=== PATIENT | male | born 1970 | race Hispanic/Latino ===

== ENCOUNTER 2016-10-18 16:03 | Observation (INO) | payer MEDICARE ==
[2016-10-18 16:19] VITALS: RESP 18; TEMP 98; BMI 23.2
[2016-10-18] MEDS ORDERED: Sodium Chloride 0.9% 1,000 ML IV STA ×2 (16:46→18:40)
--- NOTE | 2016-10-18 16:56 | ED PDOC ---
Arrival/HPI - General Chief Complaint: Dizziness/Lightheaded Time Seen by Provider: 10/18/16 16:26 Historian: Patient - History of Present Illness Narrative History of Present Illness (Text): 10/18/16 16:53 Patient w/ PMH of HIV on antiviral therapy and peripheral neuropathy, reports 2 day h/o intermittent dizziness described as lightheadedness with no vertigo associated with posterior neck pain, worse with movement, nausea and multiple episodes of vomiting. Patient adds that he has been having a cough for the past 2 weeks, states that 2 weeks ago he finished a Z-Yefri. Reports (+) worsening of symptoms with movement of head. Otherwise: (-) trauma, (-) headache, (-) tinnitus, (-) hearing loss, (-) chest pain, (-) dyspnea, (-) fever, (-) abdominal pain, (-) diarrhea, (-) urinary symptoms, (-) syncope, (-) GI bleeding , (-0 recent travel. PMD Portillo Fisher Past Medical History - Provider Review Nursing Documentation Reviewed: Yes - Tetanus Immunization Tetanus Immunization: Unknown - Cardiac Hx Cardiac Disorders: No Hx Pacemaker: No - Neurological Hx Paralysis: No Other/Comment: peripheral neuropathy - Hematological/Oncological Hx AIDS: Yes Hx Anemia: Yes (hx: blood transfusions) - Musculoskeletal/Rheumatological Hx Arthritis: Yes Hx Falls: No - Gastrointestinal Hx Gastrointestinal Disorders: (esophageal candidiasis) - Psychiatric Hx Depression: Yes Hx Emotional Abuse: No Hx Physical Abuse: No Hx Substance Use: No - Surgical History Hx Appendectomy: Yes - Anesthesia Hx Anesthesia: Yes Hx Anesthesia Reactions: No Hx Malignant Hyperthermia: No - Suicidal Assessment Feels Threatened In Home Enviroment: No Family/Social History - Physician Review Nursing Documentation Reviewed: Yes Family/Social History: No Known Family HX Smoking Status: Heavy Smoker > 10 Cigarettes Daily Hx Alcohol Use: No Hx Substance Use: No Hx Substance Use Treatment: No Allergies/Home Meds Allergies/Adverse Reactions: Allergies clarithromycin [From Biaxin] Allergy (Verified 10/18/16 16:15) VOMITING Home Medications: Home Meds Medication Instructions Recorded Confirmed Elviteg/Eve/Emtric/Tenofo Ala 1 each PO DAILY 10/18/16 10/18/16 [Genvoya Tablet] Fluconazole [Diflucan] 50 mg PO BID 10/18/16 10/18/16 Gabapentin [Neurontin] 800 mg PO TID 10/18/16 10/18/16 Oxycodone HCl [Oxaydo] 5 mg PO Q3 10/18/16 10/18/16 Oxycodone HCl [Oxycontin] 80 mg PO TID 10/18/16 10/18/16 Review of Systems - Review of Systems Constitutional: Normal, Fatigue (2 days). absent: Weight Change, Fevers ENT: Normal. absent: Hearing Changes, Tinnitus Respiratory: Normal, Cough (2 weeks). absent: SOB, Sputum Cardiovascular: Normal. absent: Chest Pain, Palpitations Gastrointestinal: Normal. absent: Abdominal Pain, Stool Changes Musculoskeletal: Normal, Neck Pain. absent: Arthralgias, Back Pain Skin: Normal. absent: Rash, Pruritis, Skin Lesions Neurological: Normal, Dizziness (2 days). absent: Headache, Focal Weakness Physical Exam - Physical Exam Narrative Physical Exam (Text): 10/18/16 17:14 GENERAL APPEARANCE: Patient is awake, alert, oriented x 3, in no acute distress. SKIN: Warm, dry; (-) cyanosis. HEAD: (-) scalp swelling or tenderness. EYES: (-) conjunctival pallor. ENMT: TMs normal. Mucous membranes dry. NECK: (-) tenderness, (-) stiffness, (-) meningismus, (-) lymphadenopathy. Carotids: (-) bruit. CHEST AND RESPIRATORY: (-) rales, (-) rhonchi, (-) wheezes; breath sounds equal bilaterally. HEART AND CARDIOVASCULAR: (-) irregularity; (-) murmur, (-) gallop. ABDOMEN AND GI: Soft; (-) distention, (-) tenderness, (-) rebound, (-) guarding , (-) palpable masses, (-) flank tenderness. EXTREMITIES: (-) deformity; (-) edema. Distal pulses: present. NEURO AND PSYCH: Mental status as above. mechanical handyman: (-) nystagmus; Pupils equal & reactive, EOMI, (-) facial asymmetry; (-) dysarthria; tongue and uvula midline. Strength and DTRs symmetric. Gait: not tested. Vital Signs Temp Pulse Resp BP Pulse Ox 10/18/16 17:08 68 18 115/75 96 10/18/16 16:15 98 F 70 18 117/79 96 Medical Decision Making ED Course and Treatment: 10/18/16 17:15 46 yo M with h/o HIV, presents with 2 day history of dizziness associated with nausea, vomiting and neck pain. Plan: -- Labs -- IV fluids -- Urinalysis -- EKG -- CXR -- Meclizine / Zofran -- Reassess and disposition EKG: NSR at 64 bpm, (-) acute ST changes, as read by PA. - Medication Orders Current Medication Orders: Discontinued Medications Sodium Chloride (Sodium Chloride 0.9%) 1,000 mls @ 1,000 mls/hr IV .Q1H STA Stop: 10/18/16 17:45 Last Admin: 10/18/16 17:12 Dose: 1,000 MLS/HR eMAR Start Stop Document 10/18/16 17:12 RR (Rec: 10/18/16 17:13 RR [id number]) Intravenous Solution Start Date 10/18/16 Start Time 17:13 End Date 10/18/16 End time 18:13 Total Infusion Time 60 Sodium Chloride (Sodium Chloride 0.9%) 1,000 mls @ 1,000 mls/hr IV .Q1H STA Stop: 10/18/16 19:39 Last Admin: 10/18/16 18:43 Dose: 1,000 MLS/HR eMAR Start Stop Document 10/18/16 18:43 RR (Rec: 10/18/16 18:43 RR [id number]) Intravenous Solution Start Date 10/18/16 Start Time 18:43 End Date 10/18/16 End time 19:43 Total Infusion Time 60 Meclizine HCl (Antivert) 25 mg PO STAT STA Stop: 10/18/16 16:47 Last Admin: 10/18/16 17:12 Dose: 25 MG Ondansetron HCl (Zofran Inj) 8 mg IVP STAT STA Stop: 10/18/16 16:47 Last Admin: 10/18/16 17:13 Dose: 8 MG IVP Administration Document 10/18/16 17:13 RR (Rec: 10/18/16 17:13 RR [id number]) Charges for Administration # of IVP Administrations 1 Potassium Chloride (Potassium Chloride Oral Soln) 40 meq PO STAT STA Stop: 10/18/16 17:51 Last Admin: 10/18/16 18:02 Dose: 40 MEQ ED OBSERVATION Date of observation admission: 10/18/16 Time of observation admission: 16:45 - Observation admission statement Patient is being placed in observation because:: For IV hydration, monitor patient's symptoms. - Goals of Observation Goals of observation are:: To see patient's response to treatment. - Progress Note Progress Note: 10/18/16 17:30 EKG: NSR at 64 bpm, (-) acute ST changes, as read by CALEB. CXR : NAD, as read by CALEB 10/18/16 18:43 On reevaluation, patient reports improvement of his symptoms, denies any dizziness at this time or nausea. Denies any abdominal pain, chest pain or shortness of breath. Labs reviewed and discussed with the patient in great detail. White count is within normal limits, patient remains afebrile, not tachycardic and has a normal pulse ox. Chest x-ray is within normal limits. Will continue to give IV hydration, second normal saline bolus ordered. 10/18/16 20:00 On second reevaluation patient reports that he feels much improved. He denies any dizziness, nausea, chest pain or shortness of breath at this time. Based on history, exam and diagnostic results plan will be for outpatient follow-up with PMD. Prescription provided. Patient states he fully agrees with and understands discharge instructions. States that he agrees with the plan and disposition. Verbalized and repeated discharge instructions and plan. I have given the patient opportunity to ask any additional questions. Follow up with primary care physician in 1-2 days without fail. Advised to take medication as prescribed. Return to the emergency room at any time for any new or worsening symptoms. - PA / MONITOR WORKER / Resident Statement /DO has reviewed & agrees with the documentation as recorded. Disposition/Present on Arrival - Present on Arrival Any Indicators Present on Arrival: No History of DVT/PE: No History of Uncontrolled Diabetes: No Urinary Catheter: No History of Decub. Ulcer: No History Surgical Site Infection Following: None - Disposition Have Diagnosis and Disposition been Completed?: Yes Diagnosis: Dehydration, Vomiting, Dizziness Disposition: HOME/ ROUTINE Disposition Time: 16:45 (Patient placed in ED obs. Then was discharged after observation and treamtnet in the ER. ) Patient Plan: Discharge Patient Problems: Current Active Problems Problem Status Diagnosed Dehydration Acute Dizziness Acute Vomiting Acute Condition: STABLE
[2016-10-18 17:38] LABS: ADD MANUAL DIFF? NO
[2016-10-18 17:48] LABS: ALB/GLOB RATIO 1.1 (1.1-1.8); ALKALINE PHOSPHATASE 132 U/L (38-133); ALT/SGPT 27 U/L (7-56); AST/SGOT 30 U/L (15-59); BILIRUBIN,TOTAL 0.7 mg/dL (0.2-1.3); BLOOD UREA NITROGEN 5 mg/dL (7-21); CALCIUM 8.7 mg/dL (8.4-10.5); CARBON DIOXIDE 30 mmol/L (21-33); CHLORIDE 93 mmol/L (98-107); GFR AFRICAN-AMERICAN > 60; GLUCOSE,RANDOM 106 mg/dL (70-110); POTASSIUM 3.3 mmol/L (3.6-5.0); SODIUM 130 mmol/L (132-148); TOTAL PROTEIN 7.5 g/dL (5.8-8.3)
[2016-10-18] MEDS ORDERED: Potassium Chloride 20 mEq/15 ml LIQ UD PO STA (17:50)
[2016-10-18 17:54] LABS: BASO # 0.01 K/mm3 (0.0-2.0); BASO % 0.2 % (0.0-3.0); EOS # 0.1 (0.0-0.7); EOS % 1.6 % (1.5-5.0); GRAN # 3.24 (1.4-6.5); GRAN % 58.3 % (50.0-68.0); HEMATOCRIT 38.1 % (42.0-52.0); LYMPH # 1.9 (1.2-3.4); LYMPH % 34.5 % (22.0-35.0); MEAN CELL VOLUME 96.2 fL (80.0-105.0); MEAN CORPUSCULAR HEMOGLOBIN 34.6 pg (25.0-35.0); MEAN PLATELET VOLUME 9.2 fl (7.0-11.0); MONO # 0.3 (0.1-0.6); MONO % 5.4 % (1.0-6.0); PLATELET COUNT 182 10^3/uL (120.0-450.0); RED CELL DISTRIBUTION WIDTH 12.4 % (11.5-14.5); WHITE BLOOD COUNT 5.6 10^3/ul (4.5-11.0)
[2016-10-18 20:29] VITALS: BP 124/86; PULSE 72; O2SAT 97
--- NOTE | 2016-10-19 07:58 | RAD ---
HISTORY: cough COMPARISON: 07/16/2014 TECHNIQUE: Chest PA and lateral FINDINGS: LUNGS: A nodular 1.3 cm opacity projects over the right inferolateral lung zone and also projects over anterior right 7th rib. Cephalad to that, there is pleural thickening and possible interval healed rib fractures here. This appearance is not noted on the 2015 image. An unusually prominent asymmetrical nipple shadow is another consideration. Again not appreciated on prior study. To exclude any underlying pulmonary nodules, consider noncontrast CT chest imaging PLEURA: As above. No pneumothorax seen no effusion noted CARDIOVASCULAR: Normal. OSSEOUS STRUCTURES: As above VISUALIZED UPPER ABDOMEN: Normal. OTHER FINDINGS: None. IMPRESSION: Indeterminate nodular opacity right inferolateral lung zone. This is also superimposed on ribs and may be related to that. An unusually prominent shadow although not excluded is believe less likely. To exclude an underlying interval right pulmonary nodule here, consider CT chest imaging
--- NOTE | 2016-10-19 15:37 | CARD ---
APPROVED REPORT EKG Measurement Heart [id number] <Conclusion> Normal sinus rhythm RVCD Subtle ST flattening V 4 - 6
== END 2016-10-18 19:51 | disposition home or self-care (01) ==
LOC: ED 16:03 → EROBSV 16:45
PROVIDERS: ADMIT Emergency Medicine; ATTEND Emergency Medicine
DX: E86.0 Dehydration (principal); R11.10 Vomiting, unspecified; R42 Dizziness and giddiness
CPT/HCPCS: 71020; 80053; 85025; 93005; 96361; 96374; 99285; G0378; J2405; J7040

== ENCOUNTER 2018-05-15 06:36 | Emergency (ER) | payer MEDICARE ==
[2018-05-15 06:44] VITALS: BMI 17.4
[2018-05-15] MEDS ORDERED: oxyCODONE 80 mg ER Tab (oxyCONTIN) PO STA (07:15)
--- NOTE | 2018-05-15 07:24 | ED PDOC ---
Arrival/HPI - General Chief Complaint: Trauma Time Seen by Provider: 05/15/18 07:08 Historian: Patient - History of Present Illness Narrative History of Present Illness (Text): 05/15/18 07:15 Patient is a 48 year old male whose past medical history includes HIV, anemia, and neuropathy, who presents to the Emergency department complaining of loss of consciousness s/p mechanical fall. Patient reports that earlier today while [place] his dog, he tripped and fell hitting his head, right elbow, and knees. He subsequently went home and has since had two episodes of losing consciousness, and feels nauseas. He admits to nose and chin pain from the fall, and denies any open wound secondary to the fall. Of note patient states that he takes Gabapentin 800mg twice daily for neuropathy and can't miss his dose. He also takes Oxycontin. Patient denies fevers, chills, cough, shortness of breath, chest pain, dyspnea on exertion, abdominal pain, vomiting, diarrhea, back pain, neck pain, headache, dizziness, or any other complaint. PMD: Dr.Jack Nath Neurologist: Infectious Disease: Time/Duration: 1-3 hours Symptom Onset: Sudden Symptom Course: Intermittent Context: Home Past Medical History - Provider Review Nursing Documentation Reviewed: Yes - Infectious Disease Hx of Infectious Diseases: None - Tetanus Immunization Tetanus Immunization: Unknown - Cardiac Hx Cardiac Disorders: No Hx Pacemaker: No - Neurological Hx Paralysis: No Other/Comment: peripheral neuropathy - Hematological/Oncological Hx AIDS: Yes Hx Anemia: Yes (hx: blood transfusions) - Musculoskeletal/Rheumatological Hx Arthritis: Yes Hx Falls: No - Gastrointestinal Hx Gastrointestinal Disorders: (esophageal candidiasis) - Psychiatric Hx Depression: Yes Hx Emotional Abuse: No Hx Physical Abuse: No Hx Substance Use: No - Surgical History Hx Appendectomy: Yes - Anesthesia Hx Anesthesia: Yes Hx Anesthesia Reactions: No Hx Malignant Hyperthermia: No - Suicidal Assessment Feels Threatened In Home Enviroment: No Family/Social History - Physician Review Nursing Documentation Reviewed: Yes Family/Social History: No Known Family HX Smoking Status: Heavy Smoker > 10 Cigarettes Daily Hx Alcohol Use: No Hx Substance Use: No Hx Substance Use Treatment: No Allergies/Home Meds Allergies/Adverse Reactions: Allergies clarithromycin [From Biaxin] Allergy (Verified 05/15/18 06:44) VOMITING sulfamethoxazole [From Bactrim] Allergy (Verified 05/15/18 06:44) VOMITING trimethoprim [From Bactrim] Allergy (Verified 05/15/18 06:44) VOMITING Home Medications: Home Meds Medication Instructions Recorded Confirmed Elviteg/Cob/Emtri/Tenof Alafen 1 each PO DAILY 10/18/16 10/18/16 [Genvoya Tablet] Fluconazole [Diflucan] 50 mg PO BID 10/18/16 10/18/16 Gabapentin [Neurontin] 800 mg PO TID 10/18/16 10/18/16 Oxycodone HCl [Oxaydo] 5 mg PO Q3 10/18/16 10/18/16 Oxycodone HCl [Oxycontin] 80 mg PO TID 10/18/16 10/18/16 Review of Systems - Physician Review All systems were reviewed & negative as marked: Yes - Review of Systems Constitutional: absent: Fevers, Night Sweats Respiratory: absent: SOB, Cough Cardiovascular: absent: Chest Pain Gastrointestinal: Nausea. absent: Abdominal Pain, Diarrhea, Vomiting Musculoskeletal: absent: Back Pain, Neck Pain Neurological: Other (loss of consciousness). absent: Headache, Dizziness Physical Exam - Physical Exam Narrative Physical Exam (Text): 05/15/18 07:16 Constitutional: No acute distress. Head: Normocephalic. Atraumatic. Eyes: PERRL. ENT: Moist mucous membranes. Neck: Supple. No midline Tenderness Cardiovascular: Regular rate. Chest: No tenderness. Respiratory: Clear to auscultation bilaterally. GI: Soft. Nontender. Nondistended. Back: No CVA tenderness. No midline tenderness. Musculoskeletal: No tenderness or swelling of extremities. Skin: No rash. Neurologic: Alert, no focal deficit. Vital Signs Reviewed: Yes Vital Signs Temp Pulse Resp BP Pulse Ox 05/15/18 06:43 98.1 F 74 17 120/73 98 Temperature: Afebrile Blood Pressure: Normal Pulse: Regular Respiratory Rate: Normal Appearance: Positive for: Well-Appearing Mental Status: Positive for: Alert and Oriented X 3 Medical Decision Making ED Course and Treatment: 05/15/18 07:16 Impression: 48 year old male who is complaining of nausea, facial pain, and two episodes of losing consciousness s/p mechanical fall Plan: -- Maxillofacial CT without contrast -- Head CT without contrast -- Neurontin -- Oxycodone -- Reassess and disposition Prior Visits: Notes and results from previous visits were reviewed. Progress Notes: Patient in no distress. Imaging unremarkable. Discharged home, f/u PMD, return to ED for worsening pain, vomiting, lethargy, confusion, or any other problem. - RAD Interpretation Narrative RAD Interpretations (Text): 05/15/18 08:[address] without contrast: Dictator : Henrique Lebron MD FINDINGS: NASAL BONES: Nasal bones intact. There is deviation of the mild leftward deviation of the nasal septum. Small left-sided spur seen arising from the nasal septum as well. ORBITS: Unremarkable. PARANASAL SINUSES/ MASTOIDS: Clear. There is mild mucosal thickening in the left maxillary antrum with possible small fluid level. There is also mucosal thickening seen within a few ethmoid air cells extending superiorly into the inferior margin of the frontal sinus on the left side. MAXILLA: Maxilla including the anterior nasal spine intact. Patient is edentulous. MANDIBLE/ TEMPOROMANDIBULAR JOINTS: Unremarkable. SKULL BASE: Unremarkable. TEMPORAL BONES: Middle ears and mastoid grossly unremarkable. OTHER FINDINGS: Orbits and contents unremarkable. Globes intact and lenses appropriately located. There are no retrobulbar hemorrhages or collections. Optic nerves and extraocular musculature unremarkable. IMPRESSION: No acute maxillofacial skeletal fractures. Mild mucoperiosteal inflammatory changes left maxillary antrum with possible small fluid level. There is also opacification of a few ethmoid air cells extending superiorly into the inferior aspect of the frontal sinus on the left side. 05/15/18 09:[address] without contrast: FINDINGS: Dictator : Henrique Lebron MD HEMORRHAGE: No acute parenchymal, subarachnoid or extra-axial hemorrhage. BRAIN: Suspect minor chronic periventricular white matter ischemic changes. No obvious parenchymal nor extra-axial mass or collection. Mild generalized volume loss. VENTRICLES: No obstructive hydrocephalus. CALVARIUM: No acute calvarial fractures. PARANASAL SINUSES: Mild mucosal thickening seen within left maxillary antrum. Minor mucosal thickening noted within a few ethmoid air cells. The Mild generalized MASTOID AIR CELLS: Unremarkable as visualized. No inflammatory changes. OTHER FINDINGS: None. IMPRESSION: No acute intracranial hemorrhage. Suspect minor chronic periventricular white matter ischemic changes. Mild generalized volume loss. 05/15/18 9:42 Right Elbow X-ray: Dictator : Alonzo Patel MD IMPRESSION: Unremarkable radiographs of the right elbow. Youth Program Director: Radiologist - Medication Orders Current Medication Orders: Gabapentin (Neurontin) 800 mg PO STAT STA; Protocol Stop: 05/15/18 07:15 - Scribe Statement The provider has reviewed the documentation as recorded by the Scribe Joe Nicholasurmila Provider Scribe Attestation: All medical record entries made by the Scribe were at my direction and personally dictated by me. I have reviewed the chart and agree that the record accurately reflects my personal performance of the history, physical exam, medical decision making, and the department course for this patient. I have also personally directed, reviewed, and agree with the discharge instructions and disposition. Disposition/Present on Arrival - Present on Arrival Any Indicators Present on Arrival: No History of DVT/PE: No History of Uncontrolled Diabetes: No Urinary Catheter: No History of Decub. Ulcer: No History Surgical Site Infection Following: None - Disposition Have Diagnosis and Disposition been Completed?: Yes Diagnosis: Fall, Elbow pain, Head injury Disposition: HOME/ ROUTINE Disposition Time: 09:35 Patient Plan: Discharge Condition: STABLE Discharge Instructions (ExitCare): Closed Head Injury (DC) Referrals: Dylan Nath MD [Family Provider] - Follow up with primary Forms: [employer] ([place]uan)
[2018-05-15] MEDS ORDERED: oxyCODONE 20 mg ER Tab (oxyCONTIN) PO ONE (07:30)
--- NOTE | 2018-05-15 08:43 | CT ---
Date of service: 05/15/2018 PROCEDURE: CT MAXILLOFACIAL BONES WITHOUT CONTRAST HISTORY: fall, struck face COMPARISON: None available. TECHNIQUE: Contiguous axial CT images of the maxillofacial bones were obtained. Coronal and sagittal reformats were generated. Radiation dose: Total exam DLP = 764.36 mGy-cm. This CT exam was performed using one or more of the following dose reduction techniques: Automated exposure control, adjustment of the mA and/or kV according to patient size, and/or use of iterative reconstruction technique. FINDINGS: NASAL BONES: Nasal bones intact. There is deviation of the mild leftward deviation of the nasal septum. Small left-sided spur seen arising from the nasal septum as well. ORBITS: Unremarkable. PARANASAL SINUSES/ MASTOIDS: Clear. There is mild mucosal thickening in the left maxillary antrum with possible small fluid level. There is also mucosal thickening seen within a few ethmoid air cells extending superiorly into the inferior margin of the frontal sinus on the left side. MAXILLA: Maxilla including the anterior nasal spine intact. Patient is edentulous. MANDIBLE/ TEMPOROMANDIBULAR JOINTS: Unremarkable. SKULL BASE: Unremarkable. TEMPORAL BONES: Middle ears and mastoid grossly unremarkable. OTHER FINDINGS: Orbits and contents unremarkable. Globes intact and lenses appropriately located. There are no retrobulbar hemorrhages or collections. Optic nerves and extraocular musculature unremarkable. IMPRESSION: No acute maxillofacial skeletal fractures. Mild mucoperiosteal inflammatory changes left maxillary antrum with possible small fluid level. There is also opacification of a few ethmoid air cells extending superiorly into the inferior aspect of the frontal sinus on the left side.
--- NOTE | 2018-05-15 08:55 | CT ---
Date of service: 05/15/2018 PROCEDURE: CT HEAD WITHOUT CONTRAST. HISTORY: fall, LOC COMPARISON: Comparison made with concurrent CT scan maxillofacial skeleton TECHNIQUE: Axial computed tomography images were obtained through the head/brain without intravenous contrast. Radiation dose: Total exam DLP = 1124.57 mGy-cm. This CT exam was performed using one or more of the following dose reduction techniques: Automated exposure control, adjustment of the mA and/or kV according to patient size, and/or use of iterative reconstruction technique. FINDINGS: HEMORRHAGE: No acute parenchymal, subarachnoid or extra-axial hemorrhage. BRAIN: Suspect minor chronic periventricular white matter ischemic changes. No obvious parenchymal nor extra-axial mass or collection. Mild generalized volume loss. VENTRICLES: No obstructive hydrocephalus. CALVARIUM: No acute calvarial fractures. PARANASAL SINUSES: Mild mucosal thickening seen within left maxillary antrum. Minor mucosal thickening noted within a few ethmoid air cells. The Mild generalized MASTOID AIR CELLS: Unremarkable as visualized. No inflammatory changes. OTHER FINDINGS: None. IMPRESSION: No acute intracranial hemorrhage. Suspect minor chronic periventricular white matter ischemic changes. Mild generalized volume loss.
[2018-05-15 09:01] VITALS: PULSE 75; RESP 19; TEMP 98
--- NOTE | 2018-05-15 09:24 | RAD ---
Date of service: 05/15/2018 PROCEDURE: Radiographs of the right elbow. HISTORY: fall, elbow pain COMPARISON: No prior. FINDINGS: BONES: Normal. No fracture. JOINTS: Normal. No osteoarthritis. SOFT TISSUES: Normal. JOINT EFFUSION: None. OTHER FINDINGS: None. IMPRESSION: Unremarkable radiographs of the right elbow.
[2018-05-15 09:49] VITALS: BP 126/53; O2SAT 99
== END 2018-05-15 09:48 | disposition home or self-care (01) ==
LOC: ED 06:36
DX: S09.90XA Unspecified injury of head, initial encounter (principal); W01.0XXA Fall on same level from slipping, tripping and stumbling without subsequent striking against object, initial encounter; Y93.K1 Activity, walking an animal; M25.521 Pain in right elbow; Z21 Asymptomatic human immunodeficiency virus [HIV] infection status; F17.210 Nicotine dependence, cigarettes, uncomplicated

== ENCOUNTER 2018-08-16 14:46 | Emergency (ER) | payer MEDICARE ==
[2018-08-16 14:47] VITALS: BMI 17.4
[2018-08-16 16:14] VITALS: RESP 18; TEMP 97.7
[2018-08-16] MEDS ORDERED: Sodium Chloride 0.9% 1,000 ML IV STA (16:27)
[2018-08-16 17:11] LABS: BASO # 0.01 K/mm3 (0.0-2.0); BASO % 0.2 % (0.0-3.0); EOS % 0.9 % (1.5-5.0); HEMOGLOBIN 12.2 g/dL (14.0-18.0); LYMPH # 1.6 (1.2-3.4); LYMPH % 35.4 % (22.0-35.0); MEAN CELL VOLUME 90.3 fl (80.0-105.0); MEAN CORPUSCULAR HEMOGLOBIN 31.1 pg (25.0-35.0); MEAN CORPUSCULAR HGB CONC 34.5 g/dl (31.0-37.0); MEAN PLATELET VOLUME 9.6 fl (7.0-11.0); MONO # 0.3 (0.1-0.6); MONO % 6.3 % (1.0-6.0); RBC 3.92 10^6/uL (3.5-6.1); RED CELL DISTRIBUTION WIDTH 13.1 % (11.5-14.5); WHITE BLOOD COUNT 4.6 10^3/uL (4.5-11.0)
[2018-08-16 17:18] LABS: INR 1.04; PARTIAL THROMBOPLASTIN TIME 29.5 Seconds (26.9-38.3); PROTHROMBIN TIME 11.5 SECONDS (9.4-12.5)
--- NOTE | 2018-08-16 17:24 | RAD ---
Date of service: 08/16/2018 HISTORY: admission COMPARISON: 10/18/2016 FINDINGS: LUNGS: No active pulmonary disease. PLEURA: No significant pleural effusion identified, no pneumothorax apparent. CARDIOVASCULAR: No atherosclerotic calcification present Normal. OSSEOUS STRUCTURES: No significant abnormalities. VISUALIZED UPPER ABDOMEN: Normal. OTHER FINDINGS: None. IMPRESSION: No active disease. No significant interval change compared to the prior examination(s).
--- NOTE | 2018-08-16 17:38 | ED PDOC ---
Arrival/HPI - General Chief Complaint: GI Problem Time Seen by Provider: 08/16/18 16:13 Historian: Patient - History of Present Illness Narrative History of Present Illness (Text): 08/16/18 17:34 48yo male with pmhx of chronic back pain, neuropathy, HIV (CD4 and viral load unknown) present with complaint of positional lightheadedness with nausea, nonbloody vomiting and diarrhea x 3days. States the last time he had diarrhea and vomiting was yesterday. Reports history of dizziness in the past, but states is not as worse this time. Describes dizziness as spinning sensation when he tries to sit up or stand up. Reports fullness on his right ear. Denies fever, chills, chest pain, focal weakness, neck pain, SOB, cough, abdominal pain, melena, hematemesis, any other complaint. Past Medical History - Provider Review Nursing Documentation Reviewed: Yes - Infectious Disease Hx of Infectious Diseases: None - Tetanus Immunization Tetanus Immunization: Unknown - Cardiac Hx Cardiac Disorders: No Hx Pacemaker: No - Neurological Hx Paralysis: No Other/Comment: peripheral neuropathy - Hematological/Oncological Hx AIDS: Yes Hx Anemia: Yes (hx: blood transfusions) - Musculoskeletal/Rheumatological Hx Arthritis: Yes Hx Falls: No - Gastrointestinal Hx Gastrointestinal Disorders: (esophageal candidiasis) - Psychiatric Hx Depression: Yes Hx Emotional Abuse: No Hx Physical Abuse: No Hx Substance Use: No - Surgical History Hx Appendectomy: Yes - Anesthesia Hx Anesthesia: Yes Hx Anesthesia Reactions: No Hx Malignant Hyperthermia: No - Suicidal Assessment Feels Threatened In Home Enviroment: No Family/Social History - Physician Review Nursing Documentation Reviewed: Yes Family/Social History: Unknown Family HX Smoking Status: Former Smoker Hx Alcohol Use: No Hx Substance Use: No Hx Substance Use Treatment: No Allergies/Home Meds Allergies/Adverse Reactions: Allergies clarithromycin [From Biaxin] Allergy (Verified 05/15/18 06:44) VOMITING sulfamethoxazole [From Bactrim] Allergy (Verified 05/15/18 06:44) VOMITING trimethoprim [From Bactrim] Allergy (Verified 05/15/18 06:44) VOMITING Home Medications: Home Meds Medication Instructions Recorded Confirmed Elviteg/Cob/Emtri/Tenof Alafen 1 each PO DAILY 10/18/16 10/18/16 [Genvoya Tablet] Fluconazole [Diflucan] 50 mg PO BID 10/18/16 10/18/16 Gabapentin [Neurontin] 800 mg PO TID 10/18/16 10/18/16 Oxycodone HCl [Oxaydo] 5 mg PO Q3 10/18/16 10/18/16 Oxycodone HCl [Oxycontin] 80 mg PO TID 10/18/16 10/18/16 Review of Systems - Physician Review All systems were reviewed & negative as marked: Yes - Review of Systems Constitutional: Normal Eyes: Normal ENT: Normal Respiratory: Normal Cardiovascular: Normal Gastrointestinal: Diarrhea, Nausea, Vomiting. absent: Abdominal Pain, Constipation, Hematemesis Genitourinary Male: Normal Musculoskeletal: Normal Skin: Normal Neurological: Dizziness. absent: Headache, Focal Weakness, Gait Changes Endocrine: Normal Hemo/Lymphatic: Normal Psychiatric: Normal Physical Exam Vital Signs Reviewed: Yes Vital Signs Temp Pulse Resp BP Pulse Ox 08/16/18 14:47 97.7 F 67 18 130/85 98 Temperature: Afebrile Blood Pressure: Normal Pulse: Regular Respiratory Rate: Normal Appearance: Positive for: Well-Appearing, Non-Toxic, Comfortable Pain Distress: None Mental Status: Positive for: Alert and Oriented X 3 - Systems Exam Head: Present: Atraumatic, Normocephalic Pupils: Present: PERRL Extroacular Muscles: Present: EOMI Conjunctiva: Present: Normal Mouth: Present: Moist Mucous Membranes, Normal Tounge (No thrush) Neck: Present: Normal Range of Motion Respiratory/Chest: Present: Clear to Auscultation, Good Air Exchange. No: Respiratory Distress, Accessory Muscle Use, Wheezes, Decreased Breath Sounds, Rales, Retracting, Rhonchi Cardiovascular: Present: Regular Rate and Rhythm, Normal S1, S2. No: Murmurs Abdomen: Present: Normal Bowel Sounds, Other (Soft). 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 No: Cyanosis, Edema Lower Extremity: Present: Normal Inspection. No: Edema Neurological: Present: GCS=15, CN II-XII Intact, Speech Normal, Motor Func Grossly Intact, Normal Sensory Function, Normal Cerebellar Funct, Gait Normal, Memory Normal, Other (No focal neurological deficit) Skin: Present: Warm, Dry, Normal Color. No: Rashes Psychiatric: Present: Alert, Oriented x 3, Normal Insight, Normal Concentration Medical Decision Making ED Course and Treatment: 08/17/18 01:43 Pt presented to ED for stated history. He was neurologically intact. Labs EKG Head CT Zofran, Pepcid, Saline Labs was unremarkable EKG sinus lisa @ 59bpm. N-stemi His symptoms improved in ED on re evaluation He was referred to ENT/[facility] He was also seen in ED by Dr. Hernandez - Lab Interpretations Lab Results: PT 11.5 SECONDS (9.4-12.5) 08/16/18 17:00 INR 1.04 08/16/18 17:00 APTT 29.5 Seconds (26.9-38.3) 08/16/18 17:00 - RAD Interpretation Radiology Orders: 08/16/18 16:26 CHEST PORTABLE [RAD] Stat 08/16/18 16:27 HEAD W/O CONTRAST [CT] Stat - Medication Orders Current Medication Orders: Discontinued Medications Sodium Chloride (Sodium Chloride 0.9%) 1,000 mls @ 999 mls/hr IV .Q1H1M STA Stop: 08/16/18 17:27 Last Admin: 08/16/18 16:41 Dose: 999 mls/hr eMAR Start Stop Document 08/16/18 16:41 KV (Rec: 08/16/18 16:41 [facility] [id number]) Intravenous Solution Start Date 08/16/18 Start Time 16:41 Meclizine HCl (Antivert) 25 mg PO STAT STA Stop: 08/16/18 16:28 Last Admin: 08/16/18 16:41 Dose: 25 mg Ondansetron HCl (Zofran Inj) 4 mg IVP STAT STA Stop: 08/16/18 16:27 Last Admin: 08/16/18 16:40 Dose: 4 mg IVP Administration Document 08/16/18 16:40 KV (Rec: 08/16/18 16:40 KV [facility] [id number]) Charges for Administration # of IVP Administrations 1 Disposition/Present on Arrival - Present on Arrival Any Indicators Present on Arrival: No History of DVT/PE: No History of Uncontrolled Diabetes: No Urinary Catheter: No History of Decub. Ulcer: No History Surgical Site Infection Following: None - Disposition Have Diagnosis and Disposition been Completed?: Yes Diagnosis: Dizziness, Vomiting Disposition: HOME/ ROUTINE Disposition Time: 18:30 Patient Plan: Discharge Condition: STABLE Discharge Instructions (ExitCare): Vertigo (a Type of Dizziness) Additional Instructions: Follow up with a Neurologist/ENT return to ED for any new symptoms Prescriptions: RX: Meclizine [Meclizine*] 25 mg PO Q6 #15 tab Ondansetron ODT [Zofran ODT] 4 mg PO Q6 #7 odt Referrals: Ochoa Loomis MD [Staff Provider] - Follow up with primary Addy Moscoso DO [Doctor Osteopathy] - Follow up with primary Forms: [employer] (Romanian)
[2018-08-16 17:46] LABS: ALBUMIN 3.8 g/dL (3.0-4.8); ALT/SGPT 19 U/L (7-56); AMYLASE 70 U/L (35-125); AST/SGOT 37 U/L (17-59); BLOOD UREA NITROGEN 5 mg/dL (7-21); CALCIUM 8.5 mg/dL (8.4-10.5); GFR NON-AFRICAN AMERICAN 50; LIPASE 33 U/L (23-300)
[2018-08-16] MEDS ORDERED: Potassium Chloride 20 mEq ER Tab PO STA (17:47)
[2018-08-16 17:57] LABS: TROPONIN I < 0.01 ng/mL
[2018-08-16 18:09] LABS: PH,URINE 6.5 (4.7-8.0); URINE BILIRUBIN NEGATIVE (NEGATIVE); URINE BLOOD NEGATIVE (NEGATIVE); URINE GLUCOSE (UA) NEGATIVE (NEGATIVE); URINE LEUKOCYTE ESTERASE NEGATIVE Leu/uL (NEGATIVE); URINE PROTEIN NEGATIVE mg/dL (<30 mg/dL); URINE UROBILINOGEN 0.2 E.U./dL (<1 E.U./dL)
[2018-08-16 18:10] LABS: URINE APPEARANCE CLEAR (CLEAR); URINE COLOR YELLOW (YELLOW)
[2018-08-16 18:28] VITALS: BP 139/83; PULSE 74; O2SAT 97
--- NOTE | 2018-08-16 18:29 | CT ---
Date of service: 08/16/2018 PROCEDURE: CT HEAD WITHOUT CONTRAST. HISTORY: dizziness COMPARISON: Noncontrast head CT performed 05/15/18 TECHNIQUE: Axial computed tomography images were obtained through the head/brain without intravenous contrast. Radiation dose: Total exam DLP = 830.35 mGy-cm. This CT exam was performed using one or more of the following dose reduction techniques: Automated exposure control, adjustment of the mA and/or kV according to patient size, and/or use of iterative reconstruction technique. FINDINGS: HEMORRHAGE: No intracranial hemorrhage. BRAIN: No mass effect or edema. Mild white matter hypodensities, which are nonspecific, but often seen with chronic microvascular ischemic disease. Please note that MRI with diffusion imaging is more sensitive in the detection of acute ischemic event. VENTRICLES: No hydrocephalus. CALVARIUM: Unremarkable. PARANASAL SINUSES: Unremarkable as visualized. No significant inflammatory changes. MASTOID AIR CELLS: Unremarkable as visualized. No inflammatory changes. OTHER FINDINGS: None. IMPRESSION: No acute intracranial pathology identified. Mild scattered nonspecific white matter changes.
--- NOTE | 2018-08-16 21:58 | CARD ---
APPROVED REPORT Date of service: 08/16/2018 EKG Measurement Heart [id number] <Conclusion> Sinus bradycardia Nonspecific ST abnormality Abnormal ECG
== END 2018-08-16 19:16 | disposition home or self-care (01) ==
LOC: ED 14:46
DX: R42 Dizziness and giddiness (principal); R11.2 Nausea with vomiting, unspecified; Z87.891 Personal history of nicotine dependence; Z21 Asymptomatic human immunodeficiency virus [HIV] infection status
CPT/HCPCS: 70450; 71045; 80053; 81003; 82150; 82550; 83615; 83690; 84484; 85025; 85610; 85730; 87040; 93005; 96374; 99283; J2405; J7030